=== PATIENT | female | born 1990 | race African-American/Black ===

== ENCOUNTER 2020-08-06 22:30 | Emergency (ER) | payer SELFPAY ==
--- OUTSIDE RECORDS SUMMARY | 2020-08-06 22:33 | XMS REPORT | Continuity of Care Document ---
:1990 Author Organization [facility] t Address [address] [place] [address] Care Team Providers Name Role Phone Jarek Molina DO Attending Clinician Madelyn PT G Attending Clinician Unavailable Problems This patient has no known problems. Allergies, Adverse Reactions, Alerts This patient has no known allergies or adverse reactions. Medications This patient has no known medications. Procedures This patient has no known procedures. Encounters Start End Encounter Admission Attending Care Care Encounter Source Date/Time Date/Time Type Type Clinicians Facility Department ID 2020-05-23 2020-05-23 Patient ANKUR Molina [id number] 00:00:00 00:00:00 Outreach [facility] [id number] [facility] [id number] PAVILLION [id number] 2020-05-22 2020-05-22 Telephone ANKUR Joshi [id number] 00:00:00 00:00:00 Angela Anastacio Chari [id number] [place] [id number] [facility] [phone] [address] Building 2020-05-04 2020-05-04 Ancillary ANKUR Joshi [id number] 15:57:24 16:49:17 Visit Angela Anastacio Chari [id number] [place] [id number] [facility] [phone] [address] Building Results This patient has no known results.
[2020-08-06] MEDS ORDERED: PHENYLEPHRINE 0.5% NOSE 15ML NAS ONE (23:18)
--- NOTE | 2020-08-07 00:30 | ER ---
Nurse's Notes [facility] Name: Isabelle Brown Age: 30 yrs Sex: Female : 1990 Arrival Date: 08/06/2020 Time: 22:34 Bed 23 Private MD: Diagnosis: Epistaxis Presentation: 08/06 22:52 Chief complaint: Patient states: she has been having a nose bleed from left nares for bb the last couple of hours and can't get it to stop. Coronavirus screen: At this time, the client does not indicate any symptoms associated with coronavirus-19. Ebola Screen: No symptoms or risks identified at this time. Initial Sepsis Screen: Does the patient meet any 2 criteria? No. Patient's initial sepsis screen is negative. Does the patient have a suspected source of infection? No. Patient's initial sepsis screen is negative. Risk Assessment: Do you want to hurt yourself or someone else? Patient reports no desire to harm self or others. Onset of symptoms was August 06, 2020. 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 - Social history:: Smoking status: Patient reports the use of cigarette tobacco products, smokes one pack cigarettes per day. Patient uses alcohol, occasionally. street drugs, marijuana. Screenin:16 Abuse screen: Denies threats or abuse. Denies injuries from another. Nutritional zb screening: No deficits noted. Tuberculosis screening: No symptoms or risk factors identified. Fall Risk None identified. Assessment: 23:00 General: Appears in no apparent distress. comfortable, Behavior is calm, cooperative, zb appropriate for age. Pain: Denies pain. Neuro: Level of Consciousness is awake, alert, obeys commands, Oriented to person, place, time, situation. Cardiovascular: Patient's skin is warm and dry. Respiratory: Airway is patent Respiratory effort is even, unlabored, Respiratory pattern is regular, symmetrical. EENT: Nares with bleeding noted on left. Derm: Skin is normal. Musculoskeletal: Range of motion: intact in all extremities. 08/07 00:06 Reassessment: Patient appears in no apparent distress at this time. Patient and/or zb family updated on plan of care and expected duration. Pain level reassessed. Patient is alert, oriented x 3, equal unlabored respirations, skin warm/dry/pink. nasal clamp remains intact. 00:38 Reassessment: Patient is alert, oriented x 3, equal unlabored respirations, skin bb warm/dry/pink. pt verbalized understanding of and agrees to plan of care discharge instructions given pt ambulated with steady gait to exit Patient states feeling better. Patient states symptoms have improved. Vital Signs: 08/06 22:52 BP 105 / 84; Pulse 88; Resp 16 S; Temp 98.8(O); Pulse Ox 99% on R/A; Weight 81.65 kg bb (R); Height 5 ft. 3 in. (160.02 cm) (R); Pain 0/10; 08/07 00:06 BP 111 / 71; Pulse 83; Resp 16; Pulse Ox 100% on R/A; zb 08/06 22:52 Body Mass Index 31.89 (81.65 kg, 160.02 cm) bb ED Course: 08/06 22:34 Patient arrived in ED. es 22:46 Javi Najera PA is PHCP. jmm 22:46 Didier Bojorquez MD is Attending Physician. jmm 22:51 Dorcas Muñoz, DAREN is Primary Nurse. zb 22:53 Triage completed. bb 22:54 Arm band placed on Patient placed in an exam room, on a stretcher, on pulse oximetry. bb 23:17 Patient has correct armband on for positive identification. Pulse ox on. NIBP on. Door zb closed. Noise minimized. 23:17 Assist provider with nosebleed control using Afrin sprays, direct pressure, Bleeding zb from left nare. Set up for procedure. Performed by Javi RHOADES Patient tolerated well. 08/07 00:29 Ella Dubon MD is Referral Physician. jmm 00:39 Patient did not have IV access during this emergency room visit. bb Administered Medications: 08/06 23:00 Drug: Jacinto-Synephrine (phenylephrine) [place] 0.5 % 1 sprays Route: Intranasal; Site: left zb nare; 08/07 00:39 Follow up: Response: Marked relief of symptoms leanne Outcome: 00:30 Discharge ordered by MD. real 00:39 Discharged to home ambulatory. leanne 00:39 Condition: stable 00:39 Discharge instructions given to patient, Instructed on discharge instructions, follow up and referral plans. Demonstrated understanding of instructions, follow-up care. 00:40 Patient left the ED. leanne Signatures: Javi Najera PA PA jmm Salyer, Edna es Ballard, Brenda RN RN Dorcas Retana RN RN zb
--- NOTE | 2020-08-07 00:30 | EDPHYS ---
Physician Documentation [facility] Name: Isabelle Brown Age: 30 yrs Sex: Female : 1990 Arrival Date: 08/06/2020 Time: 22:34 Bed 23 Private MD: ED Physician Didier Bojorquez HPI: 08/06 23:02 This 30 yrs old Black Female presents to ER via Ambulatory with complaints of Nose jmm Bleed. 23:02 The patient presents with a nose bleed, that is apparently anterior, from the left jmm nare. Onset: The symptoms/episode began/occurred acutely, today. Modifying factors: The symptoms are alleviated by nothing. the symptoms are aggravated by nothing. This is a 30 year old female with a history of bipolar, depression, ptsd that presents to the ED with complaints of left nares nose bleed. Patient has had similar episodes in the past. Has needed a rhino rocket. . 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 - Social history:: Smoking status: Patient reports the use of cigarette tobacco products, smokes one pack cigarettes per day. Patient uses alcohol, occasionally. street drugs, marijuana. ROS: 23:02 Constitutional: Negative for fever, chills, and weight loss. jmm 23:02 ENT: Positive for nose bleed. 23:02 All other systems are negative. Exam: 23:02 Constitutional: This is a well developed, well nourished patient who is awake, alert, jmm and in no acute distress. Head/Face: atraumatic. Eyes: EOMI, no conjunctival erythema appreciated 23:02 Neck: Trachea midline, Supple Chest/axilla: Normal chest wall appearance and motion. Cardiovascular: Regular rate and rhythm. No edema appreciated Respiratory: Normal respirations, no respiratory distress appreciated Abdomen/GI: Non distended, soft Back: Normal ROM Skin: General appearance color normal MS/ Extremity: Moves all extremities, no obvious deformities appreciated, no edema noted to the lower extremities Neuro: Awake and alert, normal gait Psych: Behavior is normal, Mood is normal, Patient is cooperative and pleasant 23:02 ENT: Nose: bleeding, is seen from the left nare, and is moderate, Posterior pharynx: blood noted. Vital Signs: 22:52 BP 105 / 84; Pulse 88; Resp 16 S; Temp 98.8(O); Pulse Ox 99% on R/A; Weight 81.65 kg bb (R); Height 5 ft. 3 in. (160.02 cm) (R); Pain 0/10; 08/07 00:06 BP 111 / 71; Pulse 83; Resp 16; Pulse Ox 100% on R/A; zb 08/06 22:52 Body Mass Index 31.89 (81.65 kg, 160.02 cm) bb MDM: 08/06 23:02 [facility] 08/07 00:22 Data reviewed: vital signs, nurses notes. [facility] 00:29 Counseling: I had a detailed discussion with the patient and/or guardian regarding: the [facility] historical points, exam findings, and any diagnostic results supporting the discharge/admit diagnosis, the need for outpatient follow up, to return to the emergency department if symptoms worsen or persist or if there are any questions or concerns that arise at home. ED course: Patient advised to follow up with pcp and otherwise given strict return precautions. patient understood and agrees with the plan of care, . Administered Medications: 08/06 23:00 Drug: Jacinto-Synephrine (phenylephrine) [place] 0.5 % 1 sprays Route: Intranasal; Site: left zb nare; 08/07 00:39 Follow up: Response: Marked relief of symptoms Disposition: 08/07/20 00:30 Discharged to Home. Impression: Epistaxis. - Condition is Stable. - Discharge Instructions: Nosebleed, Adult. - Medication Reconciliation Form, Thank You Letter, Antibiotic Education, Prescription Opioid Use form. - Follow up: Ella Dubon MD; When: 2 - 3 days; Reason: Recheck today's complaints, Continuance of care, Re-evaluation by your physician. Signatures: Javi Najera PA PA m Delatorre, Klarissa, RN RN bb Brown, Dorcas, RN RN zb Corrections: (The following items were deleted from the chart) 00:40 00:30 08/07/2020 00:30 Discharged to Home. Impression: Epistaxis. Condition is Stable. bb Forms are Medication Reconciliation Form, Thank You Letter, Antibiotic Education, Prescription Opioid Use. Follow up: Ella Dubon; When: 2 - 3 days; Reason: Recheck today's complaints, Continuance of care, Re-evaluation by your physician. farhan
[2020-08-07 01:19] VITALS: TEMP 98.8
[2020-08-07 01:20] VITALS: BP 111/71; O2SAT 100
== END 2020-08-07 00:40 | disposition home or self-care (01) ==
LOC: ER 22:30
DX: R04.0 Epistaxis (principal); F17.210 Nicotine dependence, cigarettes, uncomplicated; F31.9 Bipolar disorder, unspecified; F43.10 Post-traumatic stress disorder, unspecified
CPT/HCPCS: 99283